=== PATIENT | male | born 1995 | race Hispanic/Latino ===

== ENCOUNTER 2016-12-30 16:53 | Emergency (ER) | payer OTHER ==
[~2016-12-30 16:53] MED LIST: VIC5 PO
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
[2016-12-30 17:22] LABS: BASOPHILS % (AUTO) 0.5 % (0-3); EOSINOPHILS % (AUTO) 0.8 % (0-5); MONOCYTES % (AUTO) 9.9 % (4-12); Mean Corpuscular Hemoglobin 29.1 pg (27.0-35.0); Mean Corpuscular Volume 87.2 fL (81-100); NEUTROPHILS % (AUTO) 48.2 % (40-74); Platelet Count 298 bil/L (150-400)
[2016-12-30] MEDS ORDERED: Ondansetron 2 mg/mL 2 mL Inj IVPUSH PRN (17:40)
[2016-12-30] MEDS ORDERED: Acetaminophen IV 1,000 MG in IV Premix 1 EACH IV ONE (17:40)
[2016-12-30] MEDS ORDERED: HYDROmorphone 1 mg/mL Inj IVPUSH PRN (17:40)
[2016-12-30 17:44] LABS: INR 0.95 ratio
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
== END 2016-12-30 18:56 | disposition short-term general hospital (02) ==
LOC: SED 16:53 → EDUNIT# 16:53 → EDBD 16:53 → SED 18:56
DX: S41.102A Unspecified open wound of left upper arm, initial encounter (principal); S22.32XA Fracture of one rib, left side, initial encounter for closed fracture; S42.012A Anterior displaced fracture of sternal end of left clavicle, initial encounter for closed fracture; S27.321A Contusion of lung, unilateral, initial encounter; S44.92XA Injury of unspecified nerve at shoulder and upper arm level, left arm, initial encounter; X93.XXXA Assault by handgun discharge, initial encounter; Y92.9 Unspecified place or not applicable; Y93.89 Activity, other specified; Y99.8 Other external cause status; R40.2410 Glasgow coma scale score 13-15, unspecified time; J45.909 Unspecified asthma, uncomplicated
CPT/HCPCS: 36415; 70491; 71010; 71260; 73060; 80053; 85025; 85610; 86850; 96374; 96375; 99291; G0390; G0480; J0131; J1170; J2405; Q9967